=== PATIENT | female | born 1985 | race Caucasian/White ===

== ENCOUNTER → 2016-08-04 | Outpatient (CLI) | payer MEDICARE | LOC: KOH-I 13:17 | DX: R05 Cough (principal) | CPT/HCPCS: 71020 ==

== ENCOUNTER 2016-08-30 18:26 | Emergency (ER) | payer MEDICARE | END 2016-08-30 19:25 | disposition home or self-care (01) | LOC: ER1 18:26 | DX: H00.015 Hordeolum externum left lower eyelid (principal); F17.210 Nicotine dependence, cigarettes, uncomplicated | CPT/HCPCS: 99283 ==

== ENCOUNTER 2020-10-23 15:37 | Emergency (ER) | payer OTHER ==
[~2020-10-23 15:37] MED LIST: BUPRENORPHIN-N1 EACH SL; COLACE 100MG C100 MG PO; IBUPROFEN600 MG PO; PROTONIX40 MG PO; SUBUTEX 8 MG TAB8 MG PO; ZOLOFT50 MG PO
[2020-10-23 16:37] LABS: HEMOGLOBIN 14.5 gm/dl (12.3-15.3); RED BLOOD COUNT 4.67 M/UL (4.00-5.10)
[2020-10-23 16:57] LABS: BUN/CREATININE RATIO 10 (0-10)
== END 2020-10-23 18:27 | disposition home or self-care (01) ==
LOC: ER1 15:37
PROVIDERS: Physician Assistant
DX: N83.202 Unspecified ovarian cyst, left side (principal); F17.210 Nicotine dependence, cigarettes, uncomplicated
CPT/HCPCS: 80053; 81001; 84703; 85025; 99284; Q9967

== ENCOUNTER 2021-05-11 17:12 | Emergency (ER) | payer OTHER ==
[2021-05-11 19:20] LABS: RED BLOOD COUNT 5.15 M/UL (4.00-5.10); WHITE BLOOD COUNT 11.5 K/UL (4.5-11.0)
[2021-05-11 19:41] LABS: BUN/CREATININE RATIO 13 (0-10)
[2021-05-11] MEDS ORDERED: OMNICEF 300 MG300 MG PO (20:42)
[2021-05-11] MEDS ORDERED: ZOFRAN ODT 4 MG4 MG SL (20:44)
== END 2021-05-11 21:03 | disposition home or self-care (01) ==
LOC: ER1 17:12
PROVIDERS: Emergency Medicine
DX: N12 Tubulo-interstitial nephritis, not specified as acute or chronic (principal); N30.90 Cystitis, unspecified without hematuria; Z20.822 Contact with and (suspected) exposure to COVID-19
CPT/HCPCS: 80053; 81001; 83690; 84703; 85025; 96374; 96375; 99284; J1885; J2405; U0002